=== PATIENT | female | born 1955 | race Native Hawaiian/Other Pacific Islander ===

== ENCOUNTER 2016-12-25 12:30 | Outpatient (CLI) | payer OTHER | END 2016-12-25 21:40 | disposition home or self-care (01) | LOC: RAD 12:30 | DX: Z01.812 Encounter for preprocedural laboratory examination (principal); M65.4 Radial styloid tenosynovitis [de Quervain]; G56.01 Carpal tunnel syndrome, right upper limb; G56.21 Lesion of ulnar nerve, right upper limb; Z01.810 Encounter for preprocedural cardiovascular examination; Z01.811 Encounter for preprocedural respiratory examination | CPT/HCPCS: 93005 ==

== ENCOUNTER 2021-01-22 15:20 | Outpatient (CLI) | payer OTHER ==
[2021-01-22 16:08] LABS: PLATELET COUNT 452 K/uL (152-353)
[2021-01-22 16:37] LABS: POTASSIUM 3.5 mmol/L (3.6-5.2)
== END 2021-01-22 21:33 | disposition home or self-care (01) ==
LOC: LABW 15:20
PROVIDERS: ATTEND Podiatrist
DX: Z01.810 Encounter for preprocedural cardiovascular examination (principal); Z01.811 Encounter for preprocedural respiratory examination; Z01.812 Encounter for preprocedural laboratory examination
CPT/HCPCS: 36415; 80053; 80323; 85027; 93005

== ENCOUNTER 2021-03-26 14:59 | Outpatient (CLI) | payer OTHER | END 2021-03-26 19:00 | LOC: LABW 14:59 | PROVIDERS: ATTEND Podiatrist | DX: M10.071 Idiopathic gout, right ankle and foot (principal) | CPT/HCPCS: 36415; 84550; 86140 ==

== ENCOUNTER 2021-07-02 16:13 | Emergency (ER) | payer OTHER ==
[~2021-07-02] VITALS: Ht 177.8 cm; Wt 90.7 kg
[2021-07-02 16:13] VITALS: BP 152/85; TEMP 96.6
== END 2021-07-02 17:43 | disposition home or self-care (01) ==
LOC: ED 16:13
DX: S16.1XXA Strain of muscle, fascia and tendon at neck level, initial encounter (principal); M54.5 Low back pain; V86.59XA Driver of other special all-terrain or other off-road motor vehicle injured in nontraffic accident, initial encounter; Y92.89 Other specified places as the place of occurrence of the external cause
CPT/HCPCS: 96374; 96375; 99284; J1885; J2405

== ENCOUNTER 2022-09-01 09:10 | Outpatient (CLI) | payer OTHER ==
[~2022-09-01 09:10] MED LIST: ALPR0.5T24 PO; CARAFATE1 GM PO; DICLOFENAC SODIUM1 % TD; DULO60CA2 PO; ESTRACE2 MG PO; HYZAAR1 TA2 PO; LIPITOR40 MG PO; LOMOTIL2.5 MG PO; METHOCARBAMOL PO; NEURONTIN800 MG PO; PEPCID40 MG PO; PHENELX32 PO; QUET25TA2 PO
[2022-09-01 09:39] LABS: PLATELET COUNT 351 K/uL (152-353)
[2022-09-01 10:27] LABS: POTASSIUM 3.6 mmol/L (3.6-5.2)
== END 2022-09-01 20:57 | disposition home or self-care (01) ==
LOC: LAB 09:10
PROVIDERS: ATTEND Nurse Practitioner Family
DX: T17.8 Foreign body in other parts of respiratory tract (principal); I10 Essential (primary) hypertension; E78.49 Other hyperlipidemia; E44.0 Moderate protein-calorie malnutrition; J18.9 Pneumonia, unspecified organism; Y92.89 Other specified places as the place of occurrence of the external cause
CPT/HCPCS: 80053; 80061; 82306; 84443; 85027